=== PATIENT | female | born 1970 | race Caucasian/White ===

== ENCOUNTER 2017-12-06 16:05 | Emergency (ER) | payer MEDICAID ==
[~2017-12-06] VITALS: Ht 180.3 cm; Wt 69.1 kg
[~2017-12-06 16:05] MED LIST: CLIN-80 PO
[2017-12-06] MEDS ORDERED: morphine 2 MG/ML inj. syringe IM ONE ×2 (16:25→17:10)
[2017-12-06] MEDS ORDERED: ondansetron 4mg rapidly disintigrating tab PO ONE (16:25)
[2017-12-06] MEDS ORDERED: BUPIVAcaine/PF 2.5 mg/ml (0.25%) 30ml vial IJ ONE (16:40)
[2017-12-06] MEDS ORDERED: METH500T PO (18:31)
[2017-12-06] MEDS ORDERED: ONDA4TAB9 SL (18:31)
[2017-12-06] MEDS ORDERED: HYDR-3965 PO (18:31)
[2017-12-06 18:48] VITALS: BP 102/57
== END 2017-12-06 18:50 | disposition home or self-care (01) ==
LOC: ER 16:06
DX: S52.591A Other fractures of lower end of right radius, initial encounter for closed fracture (principal); S29.012A Strain of muscle and tendon of back wall of thorax, initial encounter; F17.200 Nicotine dependence, unspecified, uncomplicated; F12.10 Cannabis abuse, uncomplicated; F15.10 Other stimulant abuse, uncomplicated; W11.XXXA Fall on and from ladder, initial encounter; Y93.89 Activity, other specified; Y92.89 Other specified places as the place of occurrence of the external cause; Y99.8 Other external cause status
CPT/HCPCS: 29125; 73110; 96372; 99284; A4565; J2270; J3490

== ENCOUNTER 2017-12-13 11:05 | Outpatient (CLI) | payer MEDICAID ==
[~2017-12-13 11:05] MED LIST changes: +HYDR-3965 PO; +METH500T PO; +ONDA4TAB9 SL
[2017-12-13 11:13] VITALS: BP 118/86
[2017-12-13 11:19] VITALS: BP 118/86
[2017-12-13 17:16] VITALS: BP 118/86
== END 2017-12-13 11:45 | disposition home or self-care (01) ==
LOC: ORTHO 11:05
PROVIDERS: ATTEND Nurse Practitioner Family
DX: S52.501A Unspecified fracture of the lower end of right radius, initial encounter for closed fracture (principal); B19.20 Unspecified viral hepatitis C without hepatic coma; E03.9 Hypothyroidism, unspecified; E05.00 Thyrotoxicosis with diffuse goiter without thyrotoxic crisis or storm; F32.9 Major depressive disorder, single episode, unspecified; F41.9 Anxiety disorder, unspecified; J44.9 Chronic obstructive pulmonary disease, unspecified; K74.60 Unspecified cirrhosis of liver; W11.XXXA Fall on and from ladder, initial encounter; Y93.89 Activity, other specified; Y92.89 Other specified places as the place of occurrence of the external cause; Y99.8 Other external cause status
CPT/HCPCS: 29125

== ENCOUNTER 2018-01-10 08:03 | Day surgery (SDC) | payer MEDICAID ==
[2018-01-02 12:20] LABS: BASOPHILS % (AUTO) 0.3 % (0-1); EOSINOPHILS # (AUTO) 0.2 X10'3 (0-0.9); EOSINOPHILS % (AUTO) 2.8 % (0-6); LYMPHOCYTES # (AUTO) 1.4 X10'3 (1.1-4.8); LYMPHOCYTES % (AUTO) 20.9 % (21-51); MEAN CORPUSCULAR HEMOGLOBIN 30.8 PG (27.0-31.0); MEAN CORPUSCULAR HGB CONC 33.4 % (33.0-36.5); MEAN PLATELET VOLUME 8.8 FL (7.4-10.4); MONOCYTES # (AUTO) 0.7 X10'3 (0-0.9); MONOCYTES % (AUTO) 10.1 % (2-12); NEUTROPHILS # (AUTO) 4.4 X10'3 (1.8-7.7); NEUTROPHILS % (AUTO) 65.9 % (42-75); PRE OP HEMATOCRIT 36.6 % (35.0-45.0); PRE OP HEMOGLOBIN 12.2 g/dL (12.0-16.0); PRE OP PLATELET COUNT 248 X10'3 (140-440); RED BLOOD COUNT 3.97 X10'6 (4.20-5.60); RED CELL DISTRIBUTION WIDTH 14.3 % (11.5-14.5)
[2018-01-02 12:36] LABS: ALBUMIN 3.5 G/DL (3.4-5.0); ALBUMIN/GLOBULIN RATIO 0.9 (1.1-1.5); ALKALINE PHOSPHATASE 64 IU/L (46-116); BLOOD UREA NITROGEN 9 MG/DL (7-18); CALCIUM 8.3 MG/DL (8.5-10.1); CHLORIDE 100 MMOL/L (99-107); PRE OP ALT 31 U/L (30-65); PRE OP ANION GAP 8 (8-16); PRE OP AST 23 U/L (10-37); PRE OP BILIRUB, TOTAL 0.8 MG/DL (0.0-1.0); PRE OP GLUCOSE 87 MG/DL (70-104); PRE OP POTASSIUM 3.9 MMOL/L (3.4-5.1); PRE OP SODIUM 136 MMOL/L (135-145); TOTAL CARBON DIOXIDE 28.5 MMOL/L (24-32); TOTAL PROTEIN 7.4 G/DL (6.4-8.2); eGFR > 90 ML/MIN
[2018-01-10] VITALS (10 sets, daily range): BP systolic 109–133; BP diastolic 58–80
[~2018-01-10] VITALS: Ht 180.3 cm; Wt 54.3 kg
[~2018-01-10 08:03] MED LIST changes: +BUPIVAcaine/PF 2.5 mg/ml (0.25%) 30ml vial ONE; -CLIN-80 PO; -HYDR-3965 PO; +LEVO100T PO; -METH500T PO; -ONDA4TAB9 SL; +VANCOMYCIN INJ 1000 MG in NORMAL SALINE 250ml IV.SOLN IV ONE; +bacitracin 15gm ointment TP ONE; +ceFAZolin 1000mg inj ONE; +cefazolin/dext.iso 2gm/50ml 50 ML IV ONE; +famotidine 20mg tablet PO ONE; +ringers solution, lacted 1,000 ML IV SCH
[2018-01-10] MEDS ORDERED: cloNIDine hcl/PF 100mcg/ml inj ONE (09:03)
[2018-01-10] MEDS ORDERED: propofol inj 20 ML IV ONE (09:05)
[2018-01-10] MEDS ORDERED: fentaNYL/PF 50MCG/1 ML 2ML syringe ONE (09:05)
[2018-01-10] MEDS ORDERED: MIDAZolam 5mg/5ml vial ONE (09:05)
[2018-01-10] MEDS ORDERED: LIDOcaine 2% (20mg/ml) 5ml vial ONE (09:06)
[2018-01-10] MEDS ORDERED: dexamethasone sod phosphate 4mg/ml inj. ONE (09:06)
[2018-01-10] MEDS ORDERED: ROPIVAcaine 0.5% (5mg/ml) 30ml vial ONE (09:06)
[2018-01-10 09:15] LABS: PREOP HCG, QL SERUM NEGATIVE (NEGATIVE)
[2018-01-10] MEDS ORDERED: sevoflurane 250ml liquid IH ONE (09:50)
[2018-01-10] MEDS ORDERED: ringers solution, lacted 1,000 ML IV SCH (10:48)
[2018-01-10] MEDS ORDERED: morphine 2 MG/ML inj. syringe IV PRN ×2 (10:50)
[2018-01-10] MEDS ORDERED: meperidine/PF 50mg/ml syringe IV PRN ×3 (10:50)
[2018-01-10] MEDS ORDERED: proCHLORperazine 10 MG/2 ml inj IV PRN (10:50)
[2018-01-10] MEDS ORDERED: ondansetron/PF 4mg/2ml inj IV PRN (10:50)
[2018-01-10] MEDS ORDERED: HYDROcodone/acetaminophen 10/325mg tab PO ONE (13:15)
[2018-01-11] MEDS ORDERED: VANCOMYCIN INJ 1000 MG in NORMAL SALINE 250ml IV.SOLN IV ONE (05:30)
[2018-01-11] MEDS ORDERED: cefazolin/dext.iso 2gm/50ml 50 ML IV ONE (05:30)
[2018-01-11] MEDS ORDERED: famotidine 20mg tablet PO ONE (05:30)
== END 2018-01-10 13:28 | disposition home or self-care (01) ==
LOC: PAS 08:03
PROVIDERS: ATTEND Orthopaedic Surgery
DX: S52.551A Other extraarticular fracture of lower end of right radius, initial encounter for closed fracture (principal); X58.XXXA Exposure to other specified factors, initial encounter; Y93.89 Activity, other specified; Y92.89 Other specified places as the place of occurrence of the external cause; Y99.8 Other external cause status; F41.9 Anxiety disorder, unspecified; F32.9 Major depressive disorder, single episode, unspecified; E03.9 Hypothyroidism, unspecified; Z86.19 Personal history of other infectious and parasitic diseases
CPT/HCPCS: 25607; 36415; 71046; 80053; 84703; 85025; 93005; A4565; A6449; C1713; J0690; J0735; J1100; J2001; J2250; J2270; J2704; J2795; J3010; J3370; J7120; A7000; J3490

== ENCOUNTER 2018-01-24 10:11 | Outpatient (CLI) | payer MEDICAID ==
[~2018-01-24 10:11] MED LIST changes: -BUPIVAcaine/PF 2.5 mg/ml (0.25%) 30ml vial ONE; -VANCOMYCIN INJ 1000 MG in NORMAL SALINE 250ml IV.SOLN IV ONE; -bacitracin 15gm ointment TP ONE; -ceFAZolin 1000mg inj ONE; -cefazolin/dext.iso 2gm/50ml 50 ML IV ONE; -famotidine 20mg tablet PO ONE; -ringers solution, lacted 1,000 ML IV SCH
[2018-01-24 10:21] VITALS: BP 130/78
[2018-01-24] MEDS ORDERED: LIDOcaine 2% 5ml jelly ONE (10:42)
== END 2018-01-24 11:20 | disposition home or self-care (01) ==
LOC: ORTHO 10:11
PROVIDERS: ATTEND Nurse Practitioner Family
DX: S52.501D Unspecified fracture of the lower end of right radius, subsequent encounter for closed fracture with routine healing (principal); B19.20 Unspecified viral hepatitis C without hepatic coma; F32.9 Major depressive disorder, single episode, unspecified; F41.9 Anxiety disorder, unspecified; J44.9 Chronic obstructive pulmonary disease, unspecified; W11.XXXD Fall on and from ladder, subsequent encounter
CPT/HCPCS: 29075; 99214; A4590; A6449